=== PATIENT | female | born 1990 | race African-American/Black ===

== ENCOUNTER 2018-06-03 22:58 | Emergency (ER) | payer MEDICAID ==
[~2018-06-03] VITALS: Ht 170.2 cm; Wt 69.0 kg
[2018-06-04] MEDS ORDERED: HYDROCODONE/ACETAMINOPHEN 5/325MG TABLET PO ONE (03:15)
[2018-06-04 05:18] VITALS: BP 134/91
== END 2018-06-04 05:21 | disposition home or self-care (01) ==
LOC: ER 22:58
DX: M79.621 Pain in right upper arm (principal); R55 Syncope and collapse; M25.511 Pain in right shoulder; R20.0 Anesthesia of skin; R03.0 Elevated blood-pressure reading, without diagnosis of hypertension; V49.59XA Passenger injured in collision with other motor vehicles in traffic accident, initial encounter; Y93.89 Activity, other specified; Y92.410 Unspecified street and highway as the place of occurrence of the external cause
CPT/HCPCS: 73030; 73060; 81025; 99284